=== PATIENT | male | born 1940 | race Caucasian/White ===

== ENCOUNTER 2018-11-04 21:51 | Inpatient (IN) | payer OTHER | END 2018-11-09 18:45 | LOC: EDH 21:51 → EDHIP 11-05 01:15 → 4BH 11-05 01:27 | DX: A41.9 Sepsis, unspecified organism (principal); E43 Unspecified severe protein-calorie malnutrition; N17.0 Acute kidney failure with tubular necrosis; N39.0 Urinary tract infection, site not specified; E87.0 Hyperosmolality and hypernatremia; N17.9 Acute kidney failure, unspecified; N18.3 Chronic kidney disease, stage 3 (moderate); K52.9 Noninfective gastroenteritis and colitis, unspecified; E03.9 Hypothyroidism, unspecified; E66.9 Obesity, unspecified; E86.0 Dehydration ==

== ENCOUNTER 2019-12-26 13:49 | Observation (INO) | payer OTHER ==
[~2019-12-26] VITALS: Ht 185.4 cm; Wt 88.9 kg
[~2019-12-26 13:49] MED LIST: ERGO500014 PO; GABA-531 PO; LEVO100T12 PO; LEVO500T2 PO; OMEP20CA12 PO; ROPI4TAB22 PO; SERT50TA12 PO; TRAZ-185 PO
[2019-12-26 14:30] LABS: BASOPHILS % (AUTO) 0.9 % (0.0-5.0); EOSINOPHILS % (AUTO) 2.4 % (0.0-8.0); LYMPHOCYTES % (AUTO) 17.1 % (21.0-51.0); MEAN CORPUSCULAR HEMOGLOBIN 32.5 pg (27.0-33.0); MEAN CORPUSCULAR HGB CONC 31.8 g/dL (32.0-36.0); MEAN CORPUSCULAR VOLUME 102.2 fL (79-99); MONOCYTES % (AUTO) 6.2 % (3.0-13.0); NEUTROPHILS % (AUTO) 72.3 % (40.0-77.0); PLATELET COUNT (AUTO) 271 K/uL (130-400); RED BLOOD CELL COUNT(AUTO) 3.72 MIL/uL (4.50-6.20); RED CELL DISTRIBUTION WIDTH 14.6 % (11.0-15.5); WHITE BLOOD COUNT (AUTO) 7.9 K/uL (4.8-10.8)
[2019-12-26 14:41] LABS: CREATININE 1.8 mg/dL (0.5-1.5); POTASSIUM 3.8 mmol/L (3.5-5.1)
[2019-12-26 14:42] LABS: INR 0.94 (0.85-1.15); PARTIAL THROMBOPLASTIN TIME 23.6 SEC (26.3-35.5); PROTHROMBIN TIME 9.9 SEC (9.6-11.6)
[2019-12-26 14:46] LABS: ALBUMIN 2.4 g/dL (3.5-5.0); BILIRUBIN,TOTAL 0.3 mg/dL (0.2-1.0); TOTAL PROTEIN, SERUM 6.5 g/dL (6.0-8.3)
[2019-12-26] MEDS ORDERED: SODIUM CHLORIDE 0.9% 1000ML 1,000 ML IV ONE (14:59)
[2019-12-26] MEDS ORDERED: OCTREOTIDE 1,250 MCG /NS 250ML (DRIP) IV SCH ×2 (16:15)
[2019-12-26] MEDS ORDERED: PANTOPRAZOLE SODIUM 80 MG in NS 100ML IVP SCH (16:15)
[2019-12-26] MEDS: PHARMACY COMMUNICATION MISC SCH ×2 (16:15→20:15)
[2019-12-26] MEDS ORDERED: HYDRALAZINE HCL 20 MG/ML VIAL IV PRN ×2 (16:15→18:15)
[2019-12-26] MEDS ORDERED: DEXTROSE 5 % AND 0.9 % NACL 1,000 ML IV SCH (16:15)
[2019-12-26] MEDS ORDERED: IPRATROPIUM/ALBUTEROL SULFATE 3 ML SOLUTION IH PRN (16:15)
[2019-12-26] MEDS ORDERED: DEXTROSE 5 % AND 0.9 % NACL 1,000 ML IV ONE (16:34)
[2019-12-26] MEDS ORDERED: POTASSIUM CHLORIDE 20 MEQ ERTAB PO PRN (18:15)
[2019-12-26] MEDS ORDERED: POTASSIUM CHLORIDE 10% ELIXIR 20 MEQ/15 ML UDCUP PO PRN (18:15)
[2019-12-26] MEDS ORDERED: LIDOCAINE HCL-MPF 1% 2ML VIAL IV PRN (18:15)
[2019-12-26] MEDS ORDERED: SODIUM CHLORIDE 0.9% 1000ML 1,000 ML IV SCH (18:15)
[2019-12-26] MEDS ORDERED: POTASSIUM CHLORIDE 20MEQ/100ML 100 ML IV PRN (18:15)
[2019-12-26] MEDS: ROPINIROLE HCL 1 MG TABLET PO SCH (21:00)
[2019-12-26] MEDS: TRAZODONE HCL 50 MG TAB PO SCH (21:00)
[2019-12-26] MEDS: GABAPENTIN 100 MG CAPSULE PO SCH (21:00)
[2019-12-26] MEDS ORDERED: TRAZODONE HCL 50 MG TAB ONE (22:13)
[2019-12-26] MEDS ORDERED: GABAPENTIN 100 MG CAPSULE ONE (22:14)
[2019-12-26 23:56] LABS: HEMATOCRIT 34.5 % (42-54)
[2019-12-27] VITALS (15 sets, daily range): BP systolic 92–132; BP diastolic 52–100
--- NOTE | 2019-12-27 | NUR ---
PT ARRIVED AT THIS TIME. NO DISTRESS NOTED. ON PROTONIX DRIP AND SANDOSTATIN DRIP. PT CAME IN DUE TO [facility].
[2019-12-27] MEDS: DEXTROSE 5 % AND 0.9 % NACL 1,000 ML IV SCH (00:10)
--- NOTE | 2019-12-27 00:10 | NUR ---
DR. WHITMAN ROUNDING ON PT. ORDER FOR EGD WITH MAC AT THE ER, BUT CAME IN TO SEE PT IN PERSON. NEW ORDER FOR PT INR IN THE AM. NPO.
[2019-12-27] MEDS: PHARMACY COMMUNICATION MISC SCH ×3 (00:15→20:15)
[2019-12-27] MEDS ORDERED: OCTREOTIDE ACETATE 500 MCG in SODIUM CHLORIDE 0.9% 97.5 ML IV SCH (00:15)
[2019-12-27] MEDS ORDERED: HYDRALAZINE HCL 20 MG/ML VIAL IV PRN (00:15)
[2019-12-27] MEDS ORDERED: PANTOPRAZOLE SODIUM 80 MG in NS 100ML IVP SCH (00:15)
[2019-12-27 04:45] LABS: BASOPHILS % (AUTO) 0.8 % (0.0-5.0); EOSINOPHILS % (AUTO) 2.6 % (0.0-8.0); HEMATOCRIT 37.8 % (42-54); LYMPHOCYTES % (AUTO) 25.4 % (21.0-51.0); MEAN CORPUSCULAR HEMOGLOBIN 32.3 pg (27.0-33.0); MEAN CORPUSCULAR HGB CONC 31.2 g/dL (32.0-36.0); MEAN CORPUSCULAR VOLUME 103.6 fL (79-99); MONOCYTES % (AUTO) 6.7 % (3.0-13.0); PLATELET COUNT (AUTO) 267 K/uL (130-400); RED BLOOD CELL COUNT(AUTO) 3.65 MIL/uL (4.50-6.20); RED CELL DISTRIBUTION WIDTH 14.6 % (11.0-15.5); WHITE BLOOD COUNT (AUTO) 7.4 K/uL (4.8-10.8)
[2019-12-27 04:55] LABS: INR 0.96 (0.85-1.15); PROTHROMBIN TIME 10.1 SEC (9.6-11.6)
[2019-12-27 05:02] LABS: CREATININE 1.8 mg/dL (0.5-1.5); POTASSIUM 3.6 mmol/L (3.5-5.1)
[2019-12-27] MEDS ORDERED: IPRATROPIUM/ALBUTEROL SULFATE 3 ML SOLUTION IH PRN (11:30)
--- NOTE | 2019-12-27 13:14 | NUR ---
DCP: HOME met with pt who states he lives alone in his mobile home at an [facility]. Pt reports his children are all out of state in [place]. Pt's son is Mauro Gutierrez [phone] and friend Arleth valdivia is in [place] [phone]. Pt states he has difficulty completing his ADLS, but he has no choice but to do them, and drive himself since he has no support system in the [place].. Pt has no DME or in home care services. Pt reports [facility] was visiting him, but he has not seen anyone in sometime. Pt states he fell last Monday and fractured his ribs and has been in a lot of pain and having black stools. Pt states he will dc home and mobile home park manager will transport him home Addendum: 12/27/19 at 1333 by ALFREDO ANDRE SS Amended: Links added.
[2019-12-27] MEDS ORDERED: PROPOFOL 10 MG/ML 20ML VIAL IV ONE (14:15)
--- NOTE | 2019-12-27 16:17 | NUR ---
Spoke with Dr. Rasmussen to relay to him patient is refusing colonoscopy stating "it is not recommended in people over the age of 70." Dr. Rasmussen stated "ok, call endoscopy to cancel."
[2019-12-27] MEDS ORDERED: MAGNESIUM CITRATE 296 ML SOLUTION PO SCH (17:00)
[2019-12-27] MEDS ORDERED: LACTULOSE 20 GM/30 ML UDCUP PO ONE (17:45)
[2019-12-27] MEDS ORDERED: PEG 3350/NA SULF,BICARB,CL/KCL 4000 ML SOLN PO SCH (18:00)
--- NOTE | 2019-12-27 21:00 | NUR ---
PT STATES NO PAIN OR GI DISCOMFORT. POSSIBLE DC FOR THE AM. PT STATES HE DOES NOT WANT A COLONOSCOPY. REFUSED. DR. WHITMAN AWARE. WILL MONITOR THROUGHOUT THE NIGHT.
[2019-12-27] MEDS: ROPINIROLE HCL 1 MG TABLET PO SCH (21:08)
[2019-12-27] MEDS: GABAPENTIN 100 MG CAPSULE PO SCH (21:08)
[2019-12-27] MEDS: PANTOPRAZOLE SODIUM 40 MG TABLET.DR PO SCH (21:08)
[2019-12-27] MEDS: TRAZODONE HCL 50 MG TAB PO SCH (21:08)
[2019-12-28] MEDS: PHARMACY COMMUNICATION MISC SCH (00:15)
[2019-12-28] MEDS: DEXTROSE 5 % AND 0.9 % NACL 1,000 ML IV SCH (00:15)
[2019-12-28 04:21] VITALS: BP 106/58
[2019-12-28] MEDS ORDERED: IPRATROPIUM/ALBUTEROL SULFATE 3 ML SOLUTION IH PRN (05:45)
--- NOTE | 2019-12-28 07:30 | NUR ---
ASSESSMENT PT IS AAOX3 DENIES CP DENIES SOB DENIES NV NO COMPLAINTS RESTING IN BED, CALL LIGHT WITHIN REACH.
[2019-12-28 07:49] VITALS: BP 112/65
[2019-12-28] MEDS: PANTOPRAZOLE SODIUM 40 MG TABLET.DR PO SCH (08:27)
[2019-12-28] MEDS ORDERED: PANT40TA PO (08:52)
--- NOTE | 2019-12-28 10:00 | NUR ---
DISCHARGE PATIENT GIVEN DC INSTRUCTIONS, VERBALIZES AGREEMENT TO ALL INSTRUCTIONS. PIV REMOVED CATH TIP INTACT, TELE PACK REMOVED. ALL QUESTIONS ANSWERED, AWAITING RIDE.
== END 2019-12-28 10:26 | disposition home or self-care (01) ==
LOC: EDH 13:49 → EDHIP 15:30 → 2DH 23:50
PROVIDERS: ADMIT Internal Medicine Pulmonary Disease; ATTEND Internal Medicine Pulmonary Disease
DX: K92.1 Melena (principal); D62 Acute posthemorrhagic anemia; K22.70 Barrett's esophagus without dysplasia; K21.0 Gastro-esophageal reflux disease with esophagitis; K29.00 Acute gastritis without bleeding; K74.60 Unspecified cirrhosis of liver; S22.41XA Multiple fractures of ribs, right side, initial encounter for closed fracture; I95.9 Hypotension, unspecified; I12.9 Hypertensive chronic kidney disease with stage 1 through stage 4 chronic kidney disease, or unspecified chronic kidney disease; N18.9 Chronic kidney disease, unspecified; N17.9 Acute kidney failure, unspecified; D63.8 Anemia in other chronic diseases classified elsewhere; E03.9 Hypothyroidism, unspecified; E43 Unspecified severe protein-calorie malnutrition; G25.81 Restless legs syndrome; G62.9 Polyneuropathy, unspecified; J44.9 Chronic obstructive pulmonary disease, unspecified; E78.5 Hyperlipidemia, unspecified; Z87.442 Personal history of urinary calculi; Z87.891 Personal history of nicotine dependence; Z85.46 Personal history of malignant neoplasm of prostate; Z96.651 Presence of right artificial knee joint; Z87.19 Personal history of other diseases of the digestive system; W10.8XXA Fall (on) (from) other stairs and steps, initial encounter; Y93.01 Activity, walking, marching and hiking; Y92.29 Other specified public building as the place of occurrence of the external cause; Y99.8 Other external cause status
CPT/HCPCS: 36415 ×2; 43239; 71045; 80048; 80053; 82550; 84484; 85014; 85018; 85025 ×2; 85610 ×2; 85730; 86850; 86900; 86901; 93005; 94664; 96365; 96366; 99291; A4606; A4620; C9113 ×4; G0378 ×10; J2354 ×3; J2704; J7030 ×3; J7042

== ENCOUNTER 2020-01-27 10:25 | Emergency (ER) | payer OTHER ==
[~2020-01-27 10:25] MED LIST changes: -LEVO500T2 PO; -OMEP20CA12 PO; +PANT40TA PO
[2020-01-27] MEDS ORDERED: ONDANSETRON HCL 4 MG/2 ML VIAL ONE ×2 (10:55→16:37)
[2020-01-27] MEDS ORDERED: SODIUM CHLORIDE 0.9% 1000ML 1,000 ML IV ONE ×2 (10:56→15:59)
[2020-01-27 10:57] LABS: BASOPHILS % (AUTO) 0.6 % (0.0-5.0); EOSINOPHILS % (AUTO) 1.5 % (0.0-8.0); HEMATOCRIT 34.7 % (42-54); LYMPHOCYTES % (AUTO) 25.5 % (21.0-51.0); MEAN CORPUSCULAR HEMOGLOBIN 33.4 pg (27.0-33.0); MEAN CORPUSCULAR HGB CONC 33.4 g/dL (32.0-36.0); MONOCYTES % (AUTO) 7.9 % (3.0-13.0); NEUTROPHILS % (AUTO) 63.8 % (40.0-77.0); PLATELET COUNT (AUTO) 223 K/uL (130-400); RED BLOOD CELL COUNT(AUTO) 3.47 MIL/uL (4.50-6.20); RED CELL DISTRIBUTION WIDTH 14.7 % (11.0-15.5); WHITE BLOOD COUNT (AUTO) 6.7 K/uL (4.8-10.8)
[2020-01-27 11:22] LABS: ALBUMIN 2.2 g/dL (3.5-5.0); BILIRUBIN,TOTAL 0.5 mg/dL (0.2-1.0)
[2020-01-27 11:30] LABS: POTASSIUM 2.9 mmol/L (3.5-5.1)
[2020-01-27] MEDS ORDERED: POTASSIUM CHLORIDE 20 MEQ ERTAB PO ONE (12:00)
[2020-01-27 12:14] LABS: CREATINE KINASE, TOTAL 30 U/L (21-232); LIPASE 108 U/L (114-286)
[2020-01-27 15:24] LABS: APPEARANCE,URINE Clear (CLEAR); BILIRUBIN,URINE Negative (NEGATIVE); COLOR,URINE Yellow (YELLOW); GLUCOSE, URINE (UA) Negative (NEGATIVE); KETONES,URINE Negative (NEGATIVE); LEUKOCYTE ESTERASE ,URINE Moderate (NEGATIVE); NITRATE,URINE Negative (NEGATIVE); OCCULT BLOOD,URINE Small (NEGATIVE); PH,URINE 5.5 (5.0-8.0); PROTEIN,URINE Negative (NEGATIVE); UROBILINOGEN,URINE 0.2 mg/dL (0.2-1.0)
[2020-01-27 16:11] LABS: BACTERIA,URINE Rare /HPF (None Seen); MUCUS,URINE Few LPF (None Seen); SQUAMOUS EPITHELIAL CELL,UR Rare /HPF (0-2); YEAST,URINE BUDDING Rare /HPF (None Seen)
[2020-01-27] MEDS ORDERED: CEFTRIAXONE SODIUM 1 GM ONE (16:37)
== END 2020-01-27 18:50 | disposition home or self-care (01) ==
LOC: EDH 10:25
DX: N39.0 Urinary tract infection, site not specified (principal); E86.0 Dehydration; E87.6 Hypokalemia; K29.00 Acute gastritis without bleeding; I10 Essential (primary) hypertension; J44.9 Chronic obstructive pulmonary disease, unspecified; Z90.49 Acquired absence of other specified parts of digestive tract
CPT/HCPCS: 36415; 74176; 80053; 81001; 82550; 83690; 84484; 85025; 87088; 93005; 96361; 96374; 96375; 96376; 99285; J0696; J2405 ×2; J7030 ×2